=== PATIENT | female | born 1975 | race Caucasian/White ===

== ENCOUNTER 2017-05-10 05:15 | Observation (INO) | payer OTHER ==
[2017-05-10] MEDS ORDERED: Ondansetron HCl/PF 4 MG/2 ML Vial ONE (05:36)
[2017-05-10] MEDS ORDERED: Nitroglycerin 2% Ointment 1 INCH/1 GM Packet ONE (05:36)
[2017-05-10] MEDS ORDERED: Lorazepam 2 MG/ML VIAL ONE (05:55)
[2017-05-10 06:05] LABS: #Basophils 0.1 thou/uL (0.0-0.2); #Eosinphils 0.5 thou/uL (0.0-0.7); #Lymphocytes 3.6 thou/uL (1.20-3.40); #Monocytes 0.8 thou/uL (0.11-0.59); #Neutrophils 6.2 thou/uL (1.40-6.50); %Basophils 0.7 % (0.0-1.0); %Eosinophils 4.1 % (0.0-10.0); %Lymphocytes 32.2 % (21.0-51.0); Hematocrit 40.2 % (36.0-47.0); Mean Platelet Volume 8.3 fL (7.4-10.4); Red Blood Cell (RBC) Count 4.34 mill/uL (4.20-5.40)
[2017-05-10 06:14] LABS: ALT (SGPT) 10 U/L (8-55); AST (SGOT) 11 U/L (5-34); Alkaline Phosphatase 56 U/L (40-150); Anion Gap 10 mmol/L (10-20); BUN (Urea Nitrogen) 17 mg/dL (7.0-18.7); Bilirubin, Total 0.2 mg/dL (0.2-1.2); CK (CPK) 98 U/L (29-168); Calc. Creatinine Clearance 0 mL/min (70-130); Calcium 9.4 mg/dL (7.8-10.44); Carbon Dioxide 27 mmol/L (22-29); Chloride 105 mmol/L (98-107); Estimated GFR-MDRD 71; Globulin 3.1 g/dL (2.4-3.5); Lipase 12 U/L (8-78); Protein, Total 7.1 g/dL (6.0-8.3)
[2017-05-10 06:18] LABS: Troponin I Less than 0.010 ng/mL (< 0.028)
[2017-05-10 06:51] LABS: PTT 29.7 SEC (22.9-36.1); Prothrombin Time 13.3 SEC (12.0-14.7)
--- NOTE | 2017-05-10 07:47 | RAD ---
SINGLE VIEW OF THE CHEST: COMPARISON: 11/13/16. HISTORY: Left-sided chest pain. FINDINGS: Single view of the chest shows a normal sized cardiomediastinal silhouette. There is no evidence of consolidation, mass, or pleural effusion. There is scoliotic curvature of the spine. IMPRESSION: No evidence of acute cardiopulmonary disease. POS: [facility]
[2017-05-10] MEDS ORDERED: Zolpidem Tartrate 5 MG TAB PO PRN (07:49)
[2017-05-10] MEDS ORDERED: Senokot 8.6 MG TAB PO PRN (07:49)
[2017-05-10] MEDS ORDERED: Ondansetron HCl/PF 4 MG/2 ML Vial IVP PRN (07:49)
[2017-05-10] MEDS ORDERED: Loperamide HCl 2 MG CAP PO PRN (07:49)
[2017-05-10] MEDS ORDERED: Mag-Al 1200 mg/1200 mg/30 ML UDCUP PO PRN (07:49)
[2017-05-10] MEDS ORDERED: Acetaminophen 325 MG TAB PO PRN (07:49)
[2017-05-10] MEDS ORDERED: Milk Of Magnesia 30 ML UDCUP PO PRN (07:49)
[2017-05-10] MEDS ORDERED: HYDROcodone/Acetaminophen 5/325 mg Tablet PO PRN (07:49)
[2017-05-10] MEDS ORDERED: Ondansetron ODT 4 MG TAB PO PRN (07:49)
[2017-05-10] MEDS ORDERED: Nitroglycerin 0.4 MG TAB (25 Tab Bottle) SL PRN (07:50)
[2017-05-10] MEDS ORDERED: Loratadine 10 MG TAB PO PRN (07:50)
[2017-05-10] MEDS ORDERED: Eucerin (Mineral Oil/Petrolatum,White) 30 gm Jar TOP PRN (07:50)
[2017-05-10] MEDS ORDERED: Sodium Chloride 0.65% Nasal 44 ML BOT EA NARE PRN (07:50)
[2017-05-10] MEDS ORDERED: Diabetic Tussin 200 MG/10 ML UDCUP PO PRN (07:50)
[2017-05-10 08:08] VITALS: BMI 30.1
[2017-05-10] MEDS ORDERED: Famotidine 20 MG TAB PO SCH (09:00)
[2017-05-10] MEDS ORDERED: Aspirin 325 MG TAB PO SCH (09:00)
[2017-05-10 09:07] LABS: Troponin I Less than 0.010 ng/mL (< 0.028)
[2017-05-10] MEDS ORDERED: Promethazine HCl 25 MG/ML VIAL SLOW IVP SCH (10:30)
--- NOTE | 2017-05-10 11:07 | SS ---
HISTORY AND PHYSICAL EXAMINATION/SHORT STAY SUMMARY PRIMARY CARE PHYSICIAN: City call admission. DATE OF ADMISSION: 05/10/2017 at 06:35 a.m. DATE OF DISCHARGE: 05/10/2017 REASON FOR ADMISSION: Chest pain. HISTORY OF PRESENT ILLNESS: A 42-year-old female with a history of anxiety disorder who came to emergency room with complaint of chest pain. Patient reports that last night around 02:30 a.m., she woke up with chest pain. She was feeling that it could be acid reflux and that is why she took Tums and she slept. Around 04:30, she woke up again with similar chest pain with diaphoresis , nausea, and mild shortness of breath. Chest pain was not radiating and it was about 4/10 in intensity. The patient felt anxiety and that is why she took her Xanax, but she did not feel any better. She was having ongoing discomfort in her chest and that is why she was apprehensive and decided to come to emergency room for evaluation. In the emergency room, patient was hypertensive with blood pressure 179/103. She was having similar symptoms. In the emergency room, the patient was given nitroglycerin and after that she was having headache. She was also feeling nausea and she was given Zofran, but even after that her nausea was not improving. In the emergency room, patient was given IV fluid, Ativan, and aspirin. Subsequently, patient is being admitted to telemetry floor for rule out ACS. ADDITIONAL INFORMATION: This patient had echocardiography in 10/2016, it was normal. The patient reports that she had stress test at [facility] about 1.5 years ago that was presumed to normal per patient. The patient also reports that she has some kind of arrhythmia and is why Dr. Stewart gave a prescription for Holter monitoring which she worn and she does not know the result. Patient also reports that Dr. Stewart referred her to title i coordinator and title i coordinator is planning to do EP study, but she has not done yet. REVIEW OF SYSTEMS: The following complete review of systems was negative, unless otherwise mentioned in the HPI or below: Constitutional: Weight loss or gain, ability to conduct usual activities. Skin: Rash, itching. Eyes: Double vision, pain. ENT/Mouth: Nose bleeding, neck stiffness, pain, tenderness. Cardiovascular: Palpitations, dyspnea on exertion, orthopnea. Respiratory: Shortness of breath, wheezing, cough, hemoptysis, fever or night sweats. Gastrointestinal: Poor appetite, abdominal pain, heartburn, nausea, vomiting, constipation, or diarrhea. Genitourinary: Urgency, frequency, dysuria, nocturia. Musculoskeletal: Pain, swelling. Neurologic/Psychiatric: Anxiety, depression. Allergy/Immunologic: Skin rash, bleeding tendency. Please see my HPI for pertinent positive and negative. All other review of systems reviewed and negative except as mentioned in the HPI. PAST MEDICAL HISTORY: Asthma, hypothyroidism, history of scoliosis. PAST PSYCHIATRIC HISTORY: Anxiety and depression. PAST SURGICAL HISTORY: Hysterectomy, half of thyroid removed, right ovary removed. SOCIAL HISTORY: The patient is smoking 1 pack lasting for 1 week. She drinks alcohol socially. She denies any other illicit drug abuse. 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 FAMILY HISTORY: Hypertension to her mother. No strong family history of premature coronary artery disease, stroke or cancer. ALLERGIES: No known drug allergies. CURRENT HOME MEDICATION: Xanax 0.5 mg as needed basis. EMERGENCY ROOM COURSE: Patient is given Ativan 1 mg, IV fluids 500 mL, Zofran 8 mg, aspirin 324 mg, and nitro patch 1 inch. PHYSICAL EXAMINATION: VITAL SIGNS: On arrival, blood pressure 179/103, pulse 73, respiratory rate 16 , temperature 98.8, saturation 100% on room air, and weight 83.9 kilograms. GENERAL: The patient is currently alert, awake, no acute distress. HEAD: Normocephalic, atraumatic. EYES: Pupils round, reactive to light. Extraocular muscles intact. ENT: Oropharynx within normal limits. Moist mucous membranes, no oral lesion, no pharyngeal erythema, no exudate. NECK: Supple, range of motion is normal. No meningeal signs of irritation. LUNGS: Clear. CARDIAC: S1 and S2 regular without any murmur. ABDOMEN: Soft and benign without any tenderness. EXTREMITIES: No edema. NEUROLOGIC: Nonfocal examination. SKIN: No skin rash. HEMATOLOGICAL SYSTEM: No lymphadenopathy. NEUROLOGIC: Nonfocal examination. IMAGING AND SIGNIFICANT LABORATORY DATA: 1. EKG based on my review reveals normal sinus rhythm, nonspecific ST-T changes. 2. Chest x-ray based on my review, no acute cardiopulmonary process. 3. CBC: WBC 11.0, hemoglobin 13.1, platelet 248. INR 1.0. D-dimer less than 0.27. 4. BMP: Sodium 138, potassium 3.8, chloride 105, carbon dioxide 27, BUN 17, creatinine 0.88, glucose 93, calcium 9.4. 5. LFT: AST 11, ALT 10, alkaline phosphatase 56, albumin 4.0. Cardiac enzymes negative x2. BNP less than 10. Lipase 12, triglyceride 95, cholesterol 143, LDL 84, HDL 40. ASSESSMENT AND PLAN/IMPRESSION: 1. Acute chest pain. Patient's chest pain description is atypical, most likely related with her anxiety/acid reflux, but for benefit of doubt, we will perform exercise Cardiolite stress test. Her D-dimer is negative and in this way, thromboembolic disorder is already excluded in her low risk profile. We will do stress test later today and if her stress test is negative, then we will consider discharging her home today. 2. Anxiety disorder. The patient will continue her Xanax at home as needed basis. 3. Obesity with body mass index 30. Dietary education given. Weight loss education given. 4. Hypertension, one time, so we will monitor blood pressure while in hospital , most likely panic episode versus acute stress response from chest pain, but if her blood pressure remains normal, then we will consider discharging home without any blood pressure medicine and will advise her to monitor her blood pressure at home and follow up with primary care physician. 5. Deep venous thrombosis prophylaxis not needed because we are expecting discharge later on today. 6. Gastrointestinal prophylaxis, Pepcid 20 mg p.o. b.i.d. CODE STATUS: Patient is FULL CODE. Disposition plan based on stress test result. DATE OF ADMISSION: 05/10/2017 DATE OF DISCHARGE: 05/10/2017 DISCHARGE DISPOSITION: Home. PRIMARY DISCHARGE DIAGNOSIS: Chest pain, ruled out acute coronary syndrome. SECONDARY DISCHARGE DIAGNOSES: Anxiety disorder and hypothyroidism. PRIMARY PROCEDURE/OPERATION: None. RADIOLOGICAL INVESTIGATION: Chest x-ray normal. Stress test pending. SIGNIFICANT LABORATORY DATA: Please see my HPI above. CONTRAINDICATIONS: None. CODE STATUS: FULL CODE. INPATIENT CONSULTANTS: None. ALLERGIES: No known drug allergies. DISCHARGE PLAN: Post hospital, the patient will follow up with primary care physician, Dr. Stewart. HOSPITAL COURSE: The patient was admitted for chest pain. We did stress test to rule out acute coronary syndrome, stress test result is pending. If negative , then we will discharge her later on today. Otherwise, the patient is medically stable. We are suspecting mostly anxiety versus acid reflux and that is why we are considering Xanax to use as needed basis as well as Pepcid 20 mg p.o. b.i.d. On discharge, the patient will follow up with primary care physician to decide about antihypertensive medication. Stress test is negative and will discharge home MTDD
[2017-05-10] MEDS ORDERED: Regadenoson 0.4 MG/5 ML SYRINGE ONE (11:56)
[2017-05-10 12:31] VITALS: BP 136/86; TEMP 98.5
--- NOTE | 2017-05-10 13:49 | NM ---
NUCLEAR MEDICINE CARDIAC PERFUSION EXAMINATION WITH EJECTION FRACTION: HISTORY: A 42-year-old female with chest pain and atrial fibrillation. TECHNIQUE: A single-day nuclear medicine cardiac perfusion examination was performed. Rest images were obtaine d after administration of 9 mCi of Technetium 99m sestamibi. Stress images were obtained giving 29 mCi of Technetium 99m sestamibi at the peak of exercise on a treadmill using a Marco A protocol. The patient achieved 79% maximum-predicted heart rate. FINDINGS: Tomographic images showed no fixed or reversible perfusion defects. Gated images showed normal wall motion with an ejection fraction of 62%. EDV is 73 mL. LHR is 0.4. TID is 0.8. IMPRESSION: No evidence of ischemia. Please note this exam is limited as the patient could not achieve 80% maxi mum-predicted heart rate. POS: [facility]
--- NOTE | 2017-05-10 13:51 | CON ---
DATE OF CONSULTATION: 05/10/[address] Brayan Stewart. REASON FOR CONSULTATION: The patient was admitted with chest pain. The patient has a history of ta chycardia. HISTORY OF PRESENT ILLNESS: Ms. Goldman is a very pleasant 42-year-old woman. Patient has a histor y of rapid heart rates and tachycardia. As an outpatient, she was also diagnosed with some supraven tricular tachycardia. She has been referred to the industry segment specialist for possible ablation, but t here have been no plans to proceed with that at this point. The patient states that she had the onset of chest pain on the left side of her chest, went up to le ft side of her neck that occurred at rest last night. She came here to the hospital. The initial E KG showed some nonspecific T-wave inversion in lead V3, the cardiac enzymes were all negative. The patient had stress testing today, which will be outlined below. Otherwise, the patient states that she has intermittent feeling of her heart racing at times. The p atient states that she has a headache now and she received nitroglycerin at about 5 in the morning a nd she said she was taken off a little bit after that, still has a headache. Patient also was nauseated at that time and received Zofran. PAST MEDICAL HISTORY: 1. History of asthma. 2. History of scoliosis. 3. Hypothyroidism. MEDICATIONS: At home include Xanax if needed. No other medicines on a regular basis. She has had lisinopril she takes on occasion. SOCIAL HISTORY: She said she still smokes, but quit a few days ago. REVIEW OF SYSTEMS: Constitutional: No significant weight gain or loss. Vision: No changes. Hear ing: No changes. Pulmonary: No cough or wheezing. Gastrointestinal: No nausea, vomiting, diarrh ea. Skin: No rashes. Neurologic: No unilateral weakness or numbness. Psychiatric: No unusual d epression or anxiety. She said she has occasional anxiety but none currently. Pulmonary: No cough or wheezing. Gastrointestinal: Positive for nausea. Skin: No rashes. PHYSICAL EXAMINATION: GENERAL: On examination, this is a pleasant 42-year-old female, resting comfortably now, the main problem she has had now is her headache. VITAL SIGNS: Her blood pressure 136/86, pulse 76 and regular. HEENT: Eyes: Sclerae nonicteric. Mouth: Mucous membranes moist. NECK: Supple, no lymphadenopathy. LUNGS: Clear, no wheezing, rales, or rhonchi. CARDIAC: Normal S1, normal S2. I do not hear a murmur, rub, or gallop. ABDOMEN: Soft, nontender, no hepatosplenomegaly. EXTREMITIES: Warm, dry, no clubbing or cyanosis, no edema. HEMATOLOGIC: No unusual bruising. PSYCHIATRIC: Mood and affect normal. NEUROLOGIC: Grossly normal. SKIN: Warm and dry. LABORATORY AND X-RAY FINDINGS: Cardiac enzymes were all negative. EKG as outlined above. LDL chol esterol is 84. The stress test, the patient was given Lexiscan. As she still had nausea, it was unclear whether sh e could walk on a treadmill. She had transient ST depression 1.5 mm in lead II, III and aVF, but it resolved relatively quickly. She has had shortness of breath during the Lexiscan infusion. The he art rate was still about [address]-segments had gone back to her baseline. The perfusion imag ing appears normal at rest and stress. The patient states she had a stress echo done before. Reviewing the notes, apparently she had ST de pression with a stress echo with normal wall motion. ASSESSMENT: 1. Chest pain, somewhat atypical for angina. 2. Negative cardiac enzymes. 3. Nuclear medicine imaging showing no evidence of stress-induced ischemia with inconclusive EKG ch anges outlined above. 4. History of tachycardia. At this time, it is unclear what is causing her pain. It could have be en gastrointestinal, but based on current recommendations, medical therapy would be appropriate. PLAN: 1. She will stay on aspirin. 2. She will receive medicines for reflux. 3. If possible, if she has a need today, we will go ahead and do an ultrasound of the gallbladder. 4. Follow up with Dr. Stewart as an outpatient. She also is still considering the electrophysiologic evaluation.
[2017-05-10 14:21] LABS: Troponin I Less than 0.010 ng/mL (< 0.028)
--- NOTE | 2017-05-10 14:48 | ULT ---
ULTRASOUND ABDOMEN LIMITED: (RIGHT UPPER QUADRANT) HISTORY: 42-year-old female with nausea and abdominal pain. FINDINGS: The gallbladder has normal wall thickness and has no evidence of gallstones or sludge. The hepatic echogenicity is normal. The right kidney has normal echogenicity and has no hydronephrosis. The pa ncreas is visualized, although ultrasound is relatively insensitive for pancreatic pathology compare d to CT and MRI. There is no biliary dilation. The common duct caliber is 3 mm. IMPRESSION: Normal. ruben POS: [facility]
--- NOTE | 2017-05-13 14:38 | EKG ---
Test Reason : CHEST PAIN Blood Pressure : / mmHG Vent. Rate : 073 BPM Atrial Rate : 073 BPM P-R Int : 156 ms QRS Dur : 074 ms QT Int : 394 ms P-R-T Axes : 036 098 017 degrees QTc Int : 434 ms Normal sinus rhythm Rightward axis Septal infarct , age undetermined T wave abnormality, consider anterior ischemia Abnormal ECG Confirmed by CASSY THOMAS, ANNMARIE ([id number]), commissioning editor LEANDER CARMEN ([id number]) on 05/13/2017 2:37:28 PM Referred By: MOHAN MADERA Confirmed By:ANNMARIE MADERA MD
== END 2017-05-10 16:22 | disposition home or self-care (01) ==
LOC: ERS 05:15 → 2SW 06:35
PROVIDERS: ADMIT Internal Medicine; ATTEND Internal Medicine
DX: R07.89 Other chest pain (principal); F41.9 Anxiety disorder, unspecified; F32.9 Major depressive disorder, single episode, unspecified; E03.9 Hypothyroidism, unspecified; J45.909 Unspecified asthma, uncomplicated; M41.9 Scoliosis, unspecified; F17.210 Nicotine dependence, cigarettes, uncomplicated; Z79.899 Other long term (current) drug therapy; Z90.710 Acquired absence of both cervix and uterus; Z90.721 Acquired absence of ovaries, unilateral
CPT/HCPCS: 36415; 71010; 76705; 78452; 80053; 80061; 82553; 83690; 83880; 84484; 85025; 85379; 85610; 85730; 93005; 93017; 96361; 96374; 96375; A4216; A9500; G0378; J2060; J2405; J2550; J2785

== ENCOUNTER 2018-07-26 17:35 | Emergency (ER) | payer OTHER ==
[2018-07-26] MEDS ORDERED: Metoclopramide HCl 10 MG/2 ML VIAL ONE (18:03)
[2018-07-26] MEDS ORDERED: Ketorolac Tromethamine 30 MG/ML VIAL ONE (18:03)
[2018-07-26 18:11] LABS: #Basophils 0.1 thou/uL (0.0-0.2); #Eosinphils 0.3 thou/uL (0.0-0.7); #Lymphocytes 3.6 thou/uL (1.20-3.40); #Monocytes 0.7 thou/uL (0.11-0.59); #Neutrophils 6.1 thou/uL (1.40-6.50); %Basophils 0.7 % (0.0-1.0); %Eosinophils 2.7 % (0.0-10.0); %Lymphocytes 33.3 % (21.0-51.0); %Monocytes 6.2 % (0.0-10.0); Hemoglobin 13.8 g/dL (12.0-16.0); Mean Corpuscular HGB CONC 32.1 g/dL (32.0-36.0); Mean Corpuscular Hemoglobin 28.4 pg (27.0-31.0); Mean Corpuscular Volume 88.5 fL (78.0-98.0); Mean Platelet Volume 7.9 fL (7.4-10.4); Platelet Count 351 thou/uL (130-400); RBC Distribution Width 11.2 % (11.5-14.5); Red Blood Cell (RBC) Count 4.86 mill/uL (4.20-5.40); White Blood Cell (WBC) Count 10.8 thou/uL (4.8-10.8)
[2018-07-26 18:25] LABS: ALT (SGPT) 26 U/L (8-55); AST (SGOT) 19 U/L (5-34); Albumin 4.3 g/dL (3.5-5.0); Alkaline Phosphatase 60 U/L (40-150); Anion Gap 16 mmol/L (10-20); BUN (Urea Nitrogen) 14 mg/dL (7.0-18.7); Bilirubin, Total 0.2 mg/dL (0.2-1.2); CK (CPK) 35 U/L (29-168); Calc. Creatinine Clearance 0 mL/min (70-130); Calcium 9.6 mg/dL (7.8-10.44); Carbon Dioxide 26 mmol/L (22-29); Chloride 104 mmol/L (98-107); Estimated GFR-MDRD 65; Globulin 3.3 g/dL (2.4-3.5); Glucose 87 mg/dL (70-105); Potassium 3.6 mmol/L (3.5-5.1); Protein, Total 7.6 g/dL (6.0-8.3); Sodium 142 mmol/L (136-145)
--- NOTE | 2018-07-26 18:25 | CT ---
CT OF THE BRAIN WITHOUT CONTRAST: 07/26/18 COMPARISON: 11/13/16 HISTORY: High blood pressure and headache. TECHNIQUE: Multiple contiguous axial images were obtained in a CT of the brain without contrast. FINDINGS: The brain is normal in normal in morphology and attenuation without focal lesions or confluent areas of infarction. There is no evidence of hydrocephalus, intracranial hemorrhage, or extra-axial fluid collections. The calvarium and overlying soft tissues are unremarkable. the visualized paranasal sinuses and masto id air cells are well aerated. IMPRESSION: No evidence of acute intracranial abnormality. POS: [facility]
--- NOTE | 2018-07-26 18:26 | RAD ---
SINGLE VIEW OF THE CHEST: 07/26/18 COMPARISON: HISTORY: High blood pressure and chest palpitations. FINDINGS: Single view of the chest shows a normal sized cardiomediastinal silhouette. There is no evidence of c onsolidation, mass, or pleural effusion. The bones are unremarkable. IMPRESSION: No evidence of acute cardiopulmonary disease. POS: [facility]
== END 2018-07-26 18:58 | disposition home or self-care (01) ==
LOC: SCSER 17:35
DX: I10 Essential (primary) hypertension (principal); J45.909 Unspecified asthma, uncomplicated; E03.9 Hypothyroidism, unspecified; F41.9 Anxiety disorder, unspecified; F17.210 Nicotine dependence, cigarettes, uncomplicated
CPT/HCPCS: 70450; 71045; 80053; 82550; 84484; 85025; 93005; 96365; 96375; J1885; J2765

== ENCOUNTER 2018-09-27 14:33 | Outpatient (CLI) | payer OTHER | END 2018-09-27 14:34 | disposition home or self-care (01) | LOC: BICMAMMO 14:33 | DX: Z12.31 Encounter for screening mammogram for malignant neoplasm of breast (principal) | CPT/HCPCS: 77063; 77067 ==

== ENCOUNTER 2022-05-19 08:33 | Outpatient (CLI) | payer OTHER | END 2022-05-19 08:34 | disposition home or self-care (01) | LOC: BICMAMMO 08:33 | PROVIDERS: ATTEND Obstetrics & Gynecology Obesity Medicine | DX: Z12.31 Encounter for screening mammogram for malignant neoplasm of breast (principal) | CPT/HCPCS: 77063; 77067 ==